=== PATIENT | male | born 1990 | race Caucasian/White ===

== ENCOUNTER 2018-11-10 04:40 | Emergency (ER) | payer SELFPAY ==
[~2018-11-10] VITALS: Ht 167.6 cm; Wt 110.0 kg
[~2018-11-10 04:40] MED LIST: ALBU8.5H8 INH; BENZ1LOZ37 MM; BENZ1LOZ52 MM; CPRHC10OT BOTH EARS; DICY10CA40 PO; DOXY100T20 PO; GUAI-47 PO; HYDR-4011 PO; IBUP-1542 PO; IBUP800T48 PO; PROM6.25 PO
[2018-11-10 04:46] VITALS: Ht 167.6 cm; Wt 110.0 kg
[2018-11-10] MEDS ORDERED: KETOROLAC 30 MG INJ IM STA (05:04)
--- NOTE | 2018-11-10 05:51 | ERD ---
ER Documentation Chief Complaint Chief Complaint reports he punched a wall with r hand HPI This is a 27-year-old male who presents for right hand pain after punching a wall. This happened after having a very traumatic personal incident occurred. Apparently, he became diaphoretic and bradycardic briefly in triage, became anxious, this is now resolved. He feels pain over his fourth digit, there is some swelling, no abrasions or lacerations. Pain is constant. ROS All systems reviewed and are negative except as per history of present illness. Medications Home Meds Active Scripts Hydrocodone/Acetaminophen (Dittmer 5-325 Tablet) 1 Each Tablet, 1 TAB PO Q6H PRN for PAIN, #7 TAB Prov:ESMER TYLER MD 11/10/18 Dicyclomine HCl (Dicyclomine HCl) 10 Mg Capsule, 10 MG PO QID for 4 Days, CAP Prov:RIAN BAH NP 07/27/15 Benzocaine/Menthol* (Chloraseptic* Sore Throat Lozenge) 1 Sakina Lozenge, 1 SAKINA MM Q2H PRN for SORE THROAT for 14 Days, LOZENGE Prov:FLORIDALMA WARD NP 07/16/15 Ciprofloxacin/Hydrocortisone* (Cipro* HC Otic) 10 Ml Drops, 3 DROP BOTH EARS TID, #1 BOTTLE Prov:FLORIDALMA WARD NP 07/16/15 Guaifenesin-Dextromethorphan* (Mucinex* DM) 600-30 Mg Tabsr, 2 TAB PO BID for 10 Days, TAB Prov:FLORIDALMA WARD NP 07/16/15 Albuterol Sulfate* (Proair HFA*) 8.5 Gm Hfa.aer.ad, 2 PUFF INH Q4, #1 INHALER Prov:GALE OSBORNE PA-C 05/14/15 Promethazine w/Codeine* (Phenergan w/Codeine* Syrup) 5 Ml Syrup, 5 ML PO Q4H PRN for COUGH, #120 ML Prov:GALE OSBORNE PA-C 05/14/15 Benzocaine/Menthol* (Cepacol* Sore Throat Lozenges) 1 Each Lozenge, 1 EACH MM q2h PRN for SORE THROAT, #30 LOZENGE Prov:GALE OSBORNE PA-C 05/14/15 Ibuprofen* (Motrin*) 600 Mg Tab, 600 MG PO Q6, #30 TAB Prov:GALE OSBORNE PA-C 05/14/15 Doxycycline Hyclate* (Doxycycline Hyclate*) 100 Mg Tablet.dr, 100 MG PO BID for 10 Days, TAB Prov:GALE OSBORNE PA-C 05/14/15 Ibuprofen* (Motrin*) 600 Mg Tab, 600 MG PO Q6H PRN for PAIN AND OR ELEVATED TEMP, #30 TAB Prov:KAYLA THEODORE NP 05/05/15 Reported Medications [None] No Conflict Check 07/11/09 Allergies Allergies: Coded Allergies: No Known Allergy (Verified , 02/03/11) PMhx/Soc History of Surgery: Yes (appendectomy age 16) Anesthesia Reaction: No Hx Neurological Disorder: No Hx Respiratory Disorders: No Hx Cardiac Disorders: No Hx Psychiatric Problems: No Hx Miscellaneous Medical Probl: No Hx Alcohol Use: No Hx Substance Use: Yes (MARIJUANA) Hx Tobacco Use: No Smoking Status: Never smoker Physical Exam Vitals Vital Signs Date Temp Pulse Resp B/P (MAP) Pulse Ox O2 O2 Flow FiO2 Time Delivery Rate 11/10/18 97.6 65 14 114/85 97 Room Air 06:08 (95) 11/10/18 98.1 43 16 98/52 (67) 98 04:46 Physical Exam Const: Well-developed well-nourished nontoxic Head: Atraumatic Eyes: Normal conjunctiva ENT: Normal external ears, nose and mouth. Neck: Resp: Normal respiratory effort Cardio: Abd: Skin: Back: Ext: Right upper extremity: Full range of motion of the wrist, with no snuffbox tenderness, distally there is pain and tenderness over the fourth metacarpal area, the skin is intact, compartments are soft and easily compressible, radial pulses 2+ and cap refill is less than 2 seconds distally. Neur: Awake and alert Psych: Normal mood and affect Results 24 hrs Current Medications Medications Dose Sig/Ayanna Start Time Status Last (Trade) Ordered Route PRN Stop Time Admin Dose Reason Admin Ketorolac 30 mg ONCE STAT 11/10/18 DC 11/10/18 Tromethamine IM 05:04 05:12 (Toradol) 11/10/18 05:06 Procedures/MDM This is a [id number] 27-year-old male who presents for evaluation of hand pain. His x-ray showed a closed comminuted fourth metacarpal fracture with angulation. Patient was placed in an ulnar gutter splint. His pain was controlled in the ED, and he had no neurovascular compromise, I advised him to go to [facility] today, in order to arrange follow-up with a hand surgeon as soon as possible, strict precautions were given to return to any ER for worsening pain, numbness weakness or any other concerns. At discharge the patient was in no distress Splint Assessment: Neurovascularly intact post splint placement with good fit. Departure Diagnosis: Primary Impression: Wrist injury Encounter type: initial encounter Laterality: right Qualified Codes: S69.91XA - Unspecified injury of right wrist, hand and finger(s), initial encounter Condition: Stable ESMER TYLER MD Nov 10, 2018 05:51
[2018-11-10 06:08] VITALS: BP 114/85; PULSE 65; RESP 14
== END 2018-11-10 06:08 | disposition home or self-care (01) ==
LOC: E/R 04:40
DX: S62.334A Displaced fracture of neck of fourth metacarpal bone, right hand, initial encounter for closed fracture (principal); W22.01XA Walked into wall, initial encounter; Y92.9 Unspecified place or not applicable
CPT/HCPCS: 29125; 73130; 96372; 99284; J1885

== ENCOUNTER 2018-11-12 04:32 | Emergency (ER) | payer MEDICAID ==
[~2018-11-12] VITALS: Ht 167.6 cm; Wt 103.0 kg
[2018-11-12 04:45] VITALS: BP 141/95; PULSE 71; RESP 19; Ht 167.6 cm; Wt 103.0 kg
[2018-11-12] MEDS ORDERED: HYDROCODONE/APAP (5/325) TAB PO ONE (05:30)
== END 2018-11-12 05:44 | disposition home or self-care (01) ==
LOC: FTE 04:32
DX: S62.334D Displaced fracture of neck of fourth metacarpal bone, right hand, subsequent encounter for fracture with routine healing (principal); W22.8XXD Striking against or struck by other objects, subsequent encounter; Z76.0 Encounter for issue of repeat prescription
CPT/HCPCS: Z7502; Z7610; 99283